=== PATIENT | male | born 2005 | race African-American/Black ===

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

== ENCOUNTER 2023-11-20 18:54 | Emergency (ER) | payer OTHER ==
[~2023-11-20] VITALS: Ht 193 cm; Wt 79.0 kg
[2023-11-20 19:00] VITALS: BP 110/72; PULSE 69; RESP 20; TEMP 99; O2SAT 100
[2023-11-20 19:32] LABS: BASOPHILS % 0.5 % (0.0-2.0); EOSINOPHILS % 1.5 % (0.0-5.0); HEMATOCRIT. 42.3 % (42.0-52.0); HEMOGLOBIN. 14.4 g/dL (14.0-18.0); LYMPHOCYTES % 31.8 % (20.0-50.0); MEAN CORPUSCULAR HEMOGLOBIN 29.4 pg (28.0-32.0); MEAN CORPUSCULAR VOLUME 86.4 fL (80.0-94.0); MEAN PLATELET VOLUME 8.1 fl (7.4-10.4); NEUTROPHILS % 56.2 % (40.0-76.0); PLATELET 181 x1000/uL (130-400); RED BLOOD CELL COUNT 4.89 mill/uL (4.7-6.1); RED CELL DISTRIBUTION WIDTH 14.3 % (11.6-14.6); WHITE BLOOD COUNT 5.2 x1000/uL (4.5-11.0)
[2023-11-20 19:47] LABS: ALANINE AMINOTRANSFERASE 8 IU/L (10-49); ALBUMIN 4.7 g/dL (3.2-4.8); ASPARTATE AMINOTRANSFERASE 14 IU/L (<34); BILIRUBIN TOTAL 0.6 mg/dL (0.1-1.0); CALCIUM 9.7 mg/dL (8.7-10.4); CARBON DIOXIDE 32 mEq/L (21-32); CHLORIDE 102 mEq/L (98-107); CREATININE 0.8 mg/dL (0.6-1.3); GLUCOSE 92 mg/dL (70-105); POTASSIUM 3.5 mEq/L (3.5-5.1); PROTEIN TOTAL 8.5 g/dL (6.0-8.3); SODIUM 138 mEq/L (136-145); UREA NITROGEN BLOOD 10 mg/dL (9-23)
[2023-11-20 19:49] LABS: TROPONIN I HIGH SENSITIVITY < 4 ng/L (3.0-53)
[2023-11-20] MEDS ORDERED: PANTOPRAZOLE 40MG DR TABLET PO ONE (23:30)
[2023-11-20] MEDS ORDERED: MAGNESIUM/ALUMINUM HYDROXIDE/SIMETHICONE 30ML UDC PO ONE (23:30)
[2023-11-21] MEDS ORDERED: VISCOUS LIDOCAINE 2% 15 ML UDC MM NR (00:15)
[2023-11-21] MEDS ORDERED: VISCOUS LIDOCAINE 2% 15 ML UDC PO NR (00:15)
[2023-11-21] MEDS ORDERED: PROT40 MT (00:27)
[2023-11-21] MEDS ORDERED: MAG355OR21 MT (00:27)
[2023-11-21] MEDS ORDERED: ACETAMINOPHEN 325MG TABLET PO ONE (00:45)
== END 2023-11-21 02:16 | disposition home or self-care (01) ==
LOC: ER 18:54
DX: K29.70 Gastritis, unspecified, without bleeding (principal); R13.10 Dysphagia, unspecified
CPT/HCPCS: 36415; 71045; 80053; 84484; 85025; 93005; 99285